=== PATIENT | female | born 1980 | race Asian ===

== ENCOUNTER 2017-04-09 20:41 | Emergency (ER) | payer OTHER ==
[~2017-04-09] VITALS: Ht 167.6 cm; Wt 90.7 kg
[2017-04-09] MEDS ORDERED: ZONEGRAN100 MG OR (20:49)
[2017-04-09] MEDS ORDERED: GABA300C2 PO (20:50)
[2017-04-09] MEDS ORDERED: PHENERGAN25 MG PR (20:50)
[2017-04-09] MEDS ORDERED: B121000 MCG PO (20:51)
[2017-04-09] MEDS ORDERED: HYDR25CA25 PO (20:51)
[2017-04-09] MEDS ORDERED: PROTONIX20 MG PO (20:53)
[2017-04-09] MEDS ORDERED: ABILIFY5 MG OR (20:53)
[2017-04-09] MEDS ORDERED: FERROUS SULF325 M1 OR (20:54)
[2017-04-09] MEDS ORDERED: VITAMIN D22000 UNIT OR (20:54)
[2017-04-09] MEDS ORDERED: DULO60CA2 OR (20:55)
[2017-04-09] MEDS ORDERED: VENL37.511 PO (20:55)
[2017-04-09] MEDS ORDERED: MICARDIS40 MG PO (20:55)
[2017-04-09] MEDS ORDERED: CHLORTHALID25 MG OR (20:56)
[2017-04-09 21:17] LABS: PLATELET COUNT 320 K/uL (152-353)
[2017-04-09 21:22] LABS: POTASSIUM 3.6 mmol/L (3.6-5.2)
[2017-04-09 21:41] VITALS: BP 153/91; TEMP 98.7
== END 2017-04-09 21:57 | disposition home or self-care (01) ==
LOC: ED 20:41
DX: K52.89 Other specified noninfective gastroenteritis and colitis (principal); I10 Essential (primary) hypertension
CPT/HCPCS: 36415; 80053; 81000; 85027; 99283

== ENCOUNTER 2020-02-12 19:45 | Emergency (ER) | payer OTHER ==
[~2020-02-12] VITALS: Ht 167.6 cm; Wt 83.9 kg
[~2020-02-12 19:45] MED LIST: ABILIFY5 MG OR; B121000 MCG PO; CHLORTHALID25 MG OR; DULO60CA2 OR; FERROUS SULF325 M1 OR; GABA300C2 PO; HYDR25CA25 PO; MICARDIS40 MG PO; PHENERGAN25 MG PR; PROTONIX20 MG PO; VENL37.511 PO; VITAMIN D22000 UNIT OR; ZONEGRAN100 MG OR
[2020-02-12 20:44] VITALS: BP 163/56; TEMP 98.3
== END 2020-02-12 20:44 | disposition home or self-care (01) ==
LOC: ED 19:45
DX: S93.492A Sprain of other ligament of left ankle, initial encounter (principal); S83.8X2A Sprain of other specified parts of left knee, initial encounter; W20.8XXA Other cause of strike by thrown, projected or falling object, initial encounter; Y92.22 Religious institution as the place of occurrence of the external cause
CPT/HCPCS: 96372; 99283; J1885